=== PATIENT | female | born 1975 | race Caucasian/White ===

== ENCOUNTER 2022-08-13 10:36 | Outpatient (CLI) | payer BC, SELFPAY ==
--- NOTE | 2022-08-13 10:55 | MM_ITS ---
WS: [id number] VIEWS: MLO and CC views both breasts. 3D digital tomosynthesis is also included in this exam. Comparison made with prior exam of 03/19/2016. . Findings: A 1.2 x 0.6 cm ovoid nodule is noted in the medial lower quadrant of the left breast anterior depth. This is a change since the previous study. Regional ultrasound of this area would be indicated for fu rther workup. No significant new finding in the right breast. No architectural distortion or suspicio us calcification in either breast. Scattered fibroglandular densities are noted. MM/[place] [id number] Impression: BI-RADS: 0-Incomplete: Need additional imaging evaluation FOLLOW-UP: See Report This mammogram was also analyzed by the Computer Aided Detection System R2 Imag e Sales Development Coordinator.
== END 2022-08-13 10:37 | disposition home or self-care (01) ==
LOC: RAD 10:39
PROVIDERS: Visit Provider Nurse Practitioner
DX: Z12.31 Encounter for screening mammogram for malignant neoplasm of breast (principal)
CPT/HCPCS: 77063; 77067

== ENCOUNTER 2022-09-14 08:45 | Outpatient (CLI) | payer BC, SELFPAY ==
--- NOTE | 2022-09-14 08:55 | US_ITS ---
WS: [id number] Left breast ultrasound, 09/14/2022 Clinical Data: MASS IN THE LEFT BREAST Comparison: Mammogram, 08/13/2022 Findings: There is a complex lesion 3 cm from the nipple and in the 8:00 position of the left breast. The lesio n measures 0.58 x 0.80 x 1.29 cm and has a well-defined border but numerous septations. The remainder of the medial inner quadrant of the left breast shows no abnormalities. Only normal breast tissue is seen beside the complex lesion. US/US breast LT limited* [id number] Impression: 1. Complex lesion with greatest dimension 1.29 cm located 3 cm from the nipple and in the 8:00 position corresponding to the lesion on the mammogram. 2. Recommend biopsy of left breast lesion. BIRADS: 4-Suspicious Finding-Biopsy Should Be Considered FOLLOW UP: See Report
== END 2022-09-14 08:46 | disposition home or self-care (01) ==
LOC: RAD 08:47
PROVIDERS: PCP Nurse Practitioner; Visit Provider Nurse Practitioner
DX: N63.24 Unspecified lump in the left breast, lower inner quadrant (principal)
CPT/HCPCS: 76642

== ENCOUNTER 2022-10-18 17:24 | Emergency (ER) | payer BC, SELFPAY ==
[2022-10-18] VITALS (15 sets, daily range): BP systolic 107–134; BP diastolic 48–85; PULSE 79–82; RESP 14–16; TEMP 36.8; O2SAT 93–99
--- NOTE | 2022-10-18 17:45 | ED_ITS ---
Documented by User: MANDIE Odell 10/18/22 21:41 HPI - Female Genitourinary General: Chief complaint: Urogenital-Female Stated complaint: urinary pain Time Seen by Provider: 10/18/22 17:44 Source: patient Mode of arrival: ambulatory Limitations: no limitations History of Present Illness: Patient is a 47-year-old female who presents to ED today with a complaint of dysuria, urinary frequency and urgency and hematuria. She is also complaining of lower abdominal pains, back pains, and flank pains. She was reportedly seen at an outlying facility and recommended to come to the ED for further evaluation. Patient states approximately 10 days ago she was diagnosed with streptococcal tonsillitis. She was placed on Augmentin. She states a few days ago she began noticing dysuria frequency and urgency and yesterday began peeing bright red blood . Patient states she does have a history of pyelonephritis. She is reporting fevers as high as 101 yesterday. She states she overall feels poorly and feels fatigued. No history of kidney or ureter stones. MD elicited complaint: dysuria, UTI , back pain and flank pain Pertinent past history: pyelonephritis and other (recent strep) Onset (ago): day(s) Severity: severe Quality of pain: sharp Consistency: constant Vaginal discharge: none Vaginal bleeding: none Urinary symptoms: Dysuria, Flank Pain, Foul Smelling Urine, Frequency and Hematuria Exacerbating factors: urination Relieving factors: none Associated symptoms: Reports abdominal pain and nausea; Deny headache(s) or vaginal discharge Patient : No Review of Systems Const: Reports: fever(s) and fatigue; Denies: chills or body aches Eyes: Denies: change in vision or blurry vision ENMT: Denies: throat pain, odynophagia, ear or mastoid pain, nasal discharge or nasal congestion Card: Denies: chest pain Resp: Denies: dyspnea GI: Reports: abdominal pain and nausea; Denies: vomiting, diarrhea or change in bowel habits : Reports: flank pain, dysuria, urinary frequency, urinary urgency and hematuria; Denies: vaginal odor, vaginal bleeding, vaginal discharge or pelvic pain Musc: Reports: back pain; Denies: neck pain, extremity pain or joint pain Skin/Breast: Denies: rash Neuro: Denies: headache(s), numbness in extremities, weakness in extremities, sensory changes, dizziness or confusion PFSH ED PFSH: Medical History History of pelvic mass Surgical History History of repair of anterior cruciate ligament of right knee Social History Smoking and tobacco status: current every day smoker History of recent travel: No Physical Exam Const: COMMON NORMALS: patient oriented x3, no limitations and alert GENERAL APPEARANCE: cooperative and ill appearing NUTRITIONAL APPEARANCE: overweight ORIENTATION/CONSCIOUSNESS: Yes awake, Yes oriented to person, Yes oriented to place and Yes oriented to time HENMT: COMMON NORMALS: normocephalic and atraumatic HEAD & SCALP: normal to inspection, normocephalic and atraumatic Resp: COMMON NORMALS: normal respiratory effort and clear to auscultation bilaterally AUSCULTATION: clear to auscultation bilaterally Cardio: COMMON NORMALS: regular rate and regular rhythm RATE: regular rate RHYTHM: regular rhythm GI: COMMON NORMALS: Normal to inspection, nondistended, normoactive bowel sounds present, Soft to palpation, No hepatosplenomegaly present and no masses INSPECTION: Yes normal to inspection AUSCULTATION: Yes normoactive bowel sounds PALPATION: Yes Soft to palpation, Yes Tenderness to palpation present (GI) (throughout lower abdomen), Yes Guarding due to palpation present (GI) (lower abdomen), No Rigid due to palpation and Yes No hepatosplenomegaly present : BLADDER/KIDNEY EXAM: Yes CVA tenderness bilateral Back/Pelvis: GENERAL BACK: Yes CVA tenderness LUMBAR SPINE/LOWER BACK: Yes paraspinal muscle tenderness (across lower back) PELVIS: Yes buttocks normal SACROILIAC JOINTS: Yes SI joints normal SACRUM: no tenderness COCCYX: no tenderness Extremity: COMMON NORMALS: normal to inspection, no clubbing, cyanosis or edema, no calf tenderness and no pedal edema GENERAL: Yes normal exam except as noted Neuro: PALMA COMA SCALE: document GCS findings [place] coma scale eye opening: Spontaneous [place] coma scale verbal response: Orientated [place] coma scale motor response: Obey commands [place] coma scale total score: 15 COMMON NORMALS: patient oriented x3 SENSORIUM/ORIENTATION: Yes alert, Yes oriented to person, Yes oriented to place and Yes oriented to time Skin: RASHES: rashes noted (anterior neck/chest) Course Vital Signs: Vital signs: Vital Signs Temperature 98.2 F 10/18/22 17:37 Pulse Rate 79 10/18/22 19:43 Respiratory Rate 16 10/18/22 21:37 Blood Pressure 117/56 10/18/22 21:45 Pulse Oximetry 97 10/18/22 21:45 Oxygen Delivery Me thod 10/18/22 17:37 MDM - Female Medical Decision Making Patient is a nice 47-year-old female here for complaints of dysuria, frequency, urgency, hematuria, lower abdominal and back pains. Vital signs are stable upon arrival. She is not tachycardic or febrile. She has a normal white count. UA does show evidence for UTI with 1+ leukocyte esterase, 10-15 WBCs and 2+ katie teria. Other blood work unremarkable. I have no concern for post-streptococcal glomerulonephritis. Patient was certainly ill appearing more so than what I would expect with a mild UTI. She did have fairly significant suprapubic abdominal pain as well as back/flank pain thus the decision to order CT imaging was made. She does have fairly significant bladder wall thickening which could correlate with acute cystitis. No other acute abnormalities noted. Patient was given fluids, pain meds, nausea meds here in the ED with improvement of her symptoms. She was given a dose of IV Rocephin and will be sent home on Ciprofloxacin for treatment of her UTI (patient cannot do any form of capsules/ gel capsule secondary to alpha gal allergy). She will also be sent home with Pyridium as well as pain and nausea medications for her discomfort. Strict return to ED precautions were discussed. I would like her to see her PCP this week sometime for re-evaluation. Lab Data 10/18/22 18:14 10/18/22 18:14 Radiology Impressions Abdomen/Pelvis CT 10/18/22 19:09 IMPRESSION: 1. The bladder is incompletely filled, which can limit evaluation. Despite this, there is diffuse, mild to moderate wall thickening of the bladder. There is also inflammation around the bladder. In the correct clinical setting, this may suggest cystitis. Recommend correlation with laboratory findings. 2. Scattered diverticula in the sigmoid colon. No evidence for diverticulitis. 3. Incidental/nonacute findings are listed in the report. COMMENTS: Consistent with the [employer]'s Incidental Findings Committee white paper (J Am David Radiol 2018): Any incidental renal lesion less than 1 cm or classified as too small to characterize, or any incidental cystic renal lesion characterized as simple-appearing, is likely benign. No follow-up imaging is recommended for these lesions per consensus recommendations based on imaging criteria. Laboratory Results WBC 7.3 10^3/uL (4.0-10.0) 10/18/22 18:14 RBC 4.51 10^6/uL (4.1-5.3) 10/18/22 18:14 Hgb 14.4 g/dL (11.5-15.3) 10/18/22 18:14 Hct 44.1 % (37.0-47.0) 10/18/22 18:14 MCV 97.8 fl (81-99) 10/18/22 18:14 MCH 31.9 pg (28.0-34.0) 10/18/22 18:14 MCHC 32.7 g/dL (30.0-36.0) 10/18/22 18:14 RDW 11.9 % (12.1-15.1) L 10/18/22 18:14 Plt Count 269 10^3/cmm (130-400) 10/18/22 18:14 MPV 11.1 fL (7.4-10.4) H 10/18/22 18:14 Neut % (Auto) 57.4 % 10/18/22 18:14 Lymph % (Auto) 31.0 % 10/18/22 18:14 Louisa % (Auto) 8.6 % 10/18/22 18:14 Eos % (Auto) 2.3 % 10/18/22 18:14 Baso % (Auto) 0.6 % 10/18/22 18:14 Neut # (Auto) 4.16 10^3/uL (1.8-7.7) 10/18/22 18:14 Lymph # (Auto) 2.3 10^3/uL (0.8-4.8) 10/18/22 18:14 Louisa # (Auto) 0.6 10^3/uL (0.2-0.9) 10/18/22 18:14 Eos # (Auto) 0.2 10^3/uL (0.0-0.8) 10/18/22 18:14 Baso # (Auto) 0.0 10^3/uL (0.0-0.1) 10/18/22 18:14 Nucleated RBC % (auto) 0 % 10/18/22 18:14 Nucleated RBCs # 0.0 /100WBC 10/18/22 18:14 Sodium 139 mmol/L (136-145) 10/18/22 18:14 Potassium 4.7 mmol/L (3.5-5.1) 10/18/22 18:14 Chloride 102 mmol/L (98-107) 10/18/22 18:14 Carbon Dioxide 27 mmol/L (22-29) 10/18/22 18:14 Anion Gap 14.7 (5-19) 10/18/22 18:14 BUN 8 mg/dL (6-20) 10/18/22 18:14 Creatinine 0.7 mg/dL (0.5-0.9) 10/18/22 18:14 GFR Calculation 89.7 mL/min (90-130) L 10/18/22 18:14 Glucose 120 mg/dL (65-115) H 10/18/22 18:14 Calculated Osmolality 288 mOsm/kg (285-295) 10/18/22 18:14 Lactic Acid 1.2 mmol/L (0.5-2.2) 10/18/22 18:40 Calcium 9.5 mg/dL (8.5-10.5) 10/18/22 18:14 Total Bilirubin 0.2 mg/dL (0.15-1.2) 10/18/22 18:14 AST 20 U/L (0-32) 10/18/22 18:14 ALT 20 U/L (0-33) 10/18/22 18:14 Alkaline Phosphatase 107 U/L (35-105) H 10/18/22 18:14 Total Protein 7.0 g/dL (6.6-8.7) 10/18/22 18:14 Albumin 4.1 g/dL (3.5-5.2) 10/18/22 18:14 Globulin 2.9 g/dL (1.3-4.6) 10/18/22 18:14 Urine Color Yellow (Yellow) 10/18/22 18:16 Urine Appearance Hazy (CLEAR) A 10/18/22 18:16 Urine pH 6 (5-7) 10/18/22 18:16 Ur Specific [place] 1.015 (1.005-1.030) 10/18/22 18:16 Urine Protein Neg (Negative) 10/18/22 18:16 Urine Glucose (UA) Norm (Normal) 10/18/22 18:16 Urine Ketones Negative (Negative) 10/18/22 18:16 Urine Blood Neg (Negative) 10/18/22 18:16 Urine Nitrate Negative (Negative) 10/18/22 18:16 Urine Bilirubin Neg (Negative) 10/18/22 18:16 Urine Urobilinogen Neg mg/dL (Negative) 10/18/22 18:16 Ur Leukocyte Esterase 1+ (Negative) H 10/18/22 18:16 Urine RBC None /hpf (0-2) 10/18/22 18:16 Urine WBC 10-15 /hpf (0-5) H 10/18/22 18:16 Ur Squamous Epith Cells Rare /hpf (0-5) 10/18/22 18:16 Amorphous Sediment Not Reportable 10/18/22 18:16 Urine Bacteria 2+ /hpf (NONE) H 10/18/22 18:16 Urine HCG, Qual Negative (Negative) 10/18/22 18:16 Discharge Plan Discharge Patient Disposition: Home Clinical Impression: Acute cystitis Condition: Stable Prescriptions: New hydrocodone-acetaminophen 5-325 mg tablet 1 tab PO Q6H PRN (Reason: pain) Qty: 14 0RF ondansetron 4 mg tablet,disintegrating 4 mg PO Q8H PRN (Reason: nausea and vomiting) Qty: 14 0RF Pyridium 100 mg tablet 100 mg PO Q8H Qty: 6 0RF Cipro 500 mg tablet 500 mg PO Q12H Qty: 14 0RF Discharge Orders: Discharge ED (Routine); Ordered 10/18/22 Ordered By: Halle Knight Referrals: John Paul Spence FNP [Primary Care Provider] - Patient Instructions: Urinary Tract Infection in Women (DC), Opioid Safety, Pain Management Coding Level of Care Code ED Textile Examiner for Chg Fwd Exam Comprehensive Documented by User: Ben Javed MD 10/26/22 04:58 HPI - Female Genitourinary General: Chief complaint: Urogenital-Female Stated complaint: urinary pain Time Seen by Provider: 10/18/22 17:44 PFSH ED PFSH: Medical History History of pelvic mass Surgical History History of repair of anterior cruciate ligament of right knee Social History Smoking and tobacco status: current every day smoker History of recent travel: No Physical Exam Neuro: PALMA COMA SCALE: document GCS findings [place] coma scale total score: 15 Course Vital Signs: Vital signs: Vital Signs Temperature 98.2 F 10/18/22 17:37 Pulse Rate 79 10/18/22 19:43 Respiratory Rate 16 10/18/22 21:37 Blood Pressure 117/56 10/18/22 21:45 Pulse Oximetry 97 10/18/22 21:45 Oxygen Delivery Me thod 10/18/22 17:37 MDM - Female Medical Decision Making Patient is a nice 47-year-old female here for complaints of dysuria, frequency, urgency, hematuria, lower abdominal and back pains. Vital signs are stable upon arrival. She is not tachycardic or febrile. She has a normal white count. UA does show evidence for UTI with 1+ leukocyte esterase, 10-15 WBCs and 2+ bacteria. Other blood work unremarkable. I have no concern for post- streptococcal glomerulonephritis. Patient was certainly ill appearing more so than what I would expect with a mild UTI. She did have fairly significant supra pubic abdominal pain as well as back/flank pain thus the decision to order CT imaging was made. She does have fairly significant bladder wall thickening which could correlate with acute cystitis. No other acute abnormalities noted. Patient was given fluids, pain meds, nausea meds here in the ED with improvement of her symptoms. She was given a dose of IV Rocephin and will be sent home on Ciprofloxacin for treatment of her UTI (patient cannot do any form of capsules/gel capsule secondary to alpha gal allergy). She will also be sent home with Pyridium as well as pain and nausea medications for her discomfort. Strict return to ED precautions were discussed. I would like her to see her PCP this week sometime for re-evaluation. I reviewed this documentation by MANDIE Odell. Ben Javed MD Emergency Medicine Lab Data 10/18/22 18:14 10/18/22 18:14 Radiology Impressions Abdomen/Pelvis CT 10/18/22 19:09
[2022-10-18] MEDS: sodium chloride 0.9% 1,000 ML 999 ML IV (18:09)
[2022-10-18 18:34] LABS: Basophils % 0.6 %; Eosinophils # 0.2 10^3/uL (0.0-0.8); Eosinophils % 2.3 %; Hematocrit 44.1 % (37.0-47.0); Hemoglobin 14.4 g/dL (11.5-15.3); Lymphocytes # 2.3 10^3/uL (0.8-4.8); Mean Corpuscular HGB Conc 32.7 g/dL (30.0-36.0); Mean Corpuscular Hemoglobin 31.9 pg (28.0-34.0); Mean Corpuscular Volume 97.8 fl (81-99); Mean Platelet Volume 11.1 fL (7.4-10.4); Monocytes # 0.6 10^3/uL (0.2-0.9); Monocytes % 8.6 %; Neutrophils # 4.16 10^3/uL (1.8-7.7); Neutrophils % 57.4 %; Nucleated Red Blood Cells % 0 %; Platelet Count 269 10^3/cmm (130-400); Red Blood Count 4.51 10^6/uL (4.1-5.3); Red Cell Distribution Width 11.9 % (12.1-15.1); White Blood Count 7.3 10^3/uL (4.0-10.0)
[2022-10-18 18:51] LABS: Bilirubin Urine Neg (Negative); Blood Urine Neg (Negative); Glucose Urine UA Norm (Normal); Ketones Urine Negative (Negative); Nitrate Urine Negative (Negative); Protein Urine Neg (Negative); Specific Gravity, Urine 1.015 (1.005-1.030); Urine Appearance Hazy (CLEAR); Urine Color Yellow (Yellow); Urobilinogen Urine Neg (Negative); pH Urine 6 (5-7)
[2022-10-18 18:52] LABS: Add Urine Culture? Yes; Add Urine Microscopic? YES; Bacteria Urine 2+ /hpf; Leukocyte Esterase Urine 1+ (Negative); Squamous Epithelial Cell Urine RARE /hpf (0-5)
[2022-10-18 18:53] LABS: Alanine Aminotransferase 20 U/L (0-33); Albumin Level 4.1 g/dL (3.5-5.2); Alkaline Phosphatase 107 U/L (35-105); Anion Gap 14.7 (5-19); Aspartate Amino Transferase 20 U/L (0-32); Blood Urea Nitrogen 8 mg/dL (6-20); Calcium 9.5 mg/dL (8.5-10.5); Carbon Dioxide 27 mmol/L (22-29); Chloride 102 mmol/L (98-107); Creatinine Clr Calc Pharmacy 116.2474; Globulin 2.9 g/dL (1.3-4.6); Glomerular Filtration Rate 89.7 mL/min (90-130); Glucose 120 mg/dL (65-115); Osmolality Calculated 288 mOsm/kg (285-295); Potassium 4.7 mmol/L (3.5-5.1); Sodium 139 mmol/L (136-145); Total Bilirubin 0.2 mg/dL (0.15-1.2)
--- NOTE | 2022-10-18 19:09 | CTR_ITS ---
PROCEDURE INFORMATION: Exam: CT Abdomen And Pelvis With Contrast Exam date and time: 10/18/2022 8:18 PM Age: 47 years old Clinical indication: Fever; Abdominal pain; Localized; Prior surgery; Surgery type: Tubal ligation; Patient HX: C/O lower abd pain with dysuria/hematuria. ; Additional info: Lower abdominal pain/back pain TECHNIQUE: Imaging protocol: Computed tomography of the abdomen and pelvis with contrast. Sagittal and coronal reformatted images were created and reviewed. Radiation optimization: All CT scans at this facility use at least one of these dose optimization techniques: automated exposure control; mA and/or kV adjustment per patient size (includes targeted exams where dose is matched to clinical indication); or iterative reconstruction. Contrast material: OMNI 350; Contrast volume: 100 ml; Contrast route: INTRAVENOUS (IV); COMPARISON: US pelvic with transvaginal 09/13/2017 8:31 AM RADIATION DOSE METRICS: Total DLP (mGy-cm): 970.98 FINDINGS: Lungs: Visualized lungs are clear. Calcified granulomas in both lungs. Pleural spaces: No pleural effusion. Heart: Visualized portions of the heart are unremarkable. Liver: The liver is unremarkable. Gallbladder and bile ducts: The gallbladder is unremarkable. No biliary ductal dilatation. Pancreas: The pancreas is unremarkable. No pancreatic ductal dilatation. Spleen: The spleen is unremarkable. Adrenal glands: The right and left adrenal glands are unremarkable. Kidneys and ureters: The right kidney is unremarkable. Subcentimeter hypodense focus in the left kidney that is too small to characterize, however likely represents a small cyst. The right and left ureters are unremarkable. Stomach and bowel: Scattered diverticula in the sigmoid colon. No evidence for diverticulitis. Appendix: The appendix is visualized and is unremarkable. No findings to suggest acute appendicitis. Intraperitoneal space: No free intraperitoneal air. No ascites. No loculated fluid collections to suggest an abscess. Vasculature: No evidence for aortic aneurysm or aortic dissection. Hepatic veins, portal veins, splenic vein, and SMV are patent. Lymph nodes: No lymphadenopathy. Right hilar calcified lymph node. Urinary bladder: The bladder is incompletely filled, which can limit evaluation. Despite this, there is diffuse, mild to moderate wall thickening of the bladder. There is also inflammation around the bladder. 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 This measures 2.0 cm (series 3, image 74). The right and left ovaries are unremarkable. Bones/joints: Degenerative changes in the spine and hips. Soft tissues: Unremarkable. CT/CT abdomen pelvis w con* [id number] IMPRESSION: 1. The bladder is incompletely filled, which can limit evaluation. Despite this, there is diffuse, mild to moderate wall thickening of the bladder. There is also inflammation around the bladder. In the correct clinical setting, this may suggest cystitis. Recommend correlation with laboratory findings. 2. Scattered diverticula in the sigmoid colon. No evidence for diverticulitis. 3. Incidental/nonacute findings are listed in the report. COMMENTS: Consistent with the [employer]'s Incidental Findings Committee white paper (J Am David Radiol 2018): Any incidental renal lesion less than 1 cm or classified as too small to characterize, or any incidental cystic renal lesion characterized as simple-appearing, is likely benign. No follow-up imaging is recommended for these lesions per consensus recommendations based on imaging criteria.
[2022-10-18 19:22] LABS: Lactic Sepsis W/Reflex 1.2 mmol/L (0.5-2.2)
[2022-10-18] MEDS: morphine 4 mg/mL SDV 1 mL IVP ×2 (19:44→21:37)
[2022-10-18] MEDS: ondansetron 2 mg/ML SDV 2 mL 4 MG IVP ×2 (19:44→21:43)
[2022-10-18] MEDS: iohexol 350 mg/mL 500 mL Btl (per mL) IV (20:24)
[2022-10-18] MEDS: cefTRIAXone 1,000 MG in sodium chloride 0.9% (plus) 50 ML 100 MG IV (21:25)
== END 2022-10-18 21:52 | disposition home or self-care (01) ==
PROVIDERS: Emergency Provider Physician Assistant; PCP Nurse Practitioner
DX: N30.00 Acute cystitis without hematuria (principal); F17.210 Nicotine dependence, cigarettes, uncomplicated
CPT/HCPCS: 36415; 74177; 80053; 81001; 81025; 83605; 85025; 87040; 87077; 87086; 87186; 96365; 96375; 96376; 99285; J0696; J2270; J2405; J7030; Q9967

== ENCOUNTER 2022-11-04 08:02 | Outpatient (CLI) | payer BC, SELFPAY ==
--- NOTE | 2022-11-04 08:19 | US_ITS ---
WS: [id number] ULTRASOUND-GUIDED LEFT BREAST BIOPSY HISTORY: INCONCLUSIVE MAMMOGRAM COMPARISON: 09/14/2022 and 08/13/2022 Procedure, risks and complications are explained to the patient. Medications are reviewed. Consent is obtained. The mass in the LEFT breast is localized with ultrasound. This appears to be a cluster of cysts. Skin is cleansed with ChloraPrep and anesthetized with 1% buffered lidocaine. Small dermatome is made. Un jose sterile conditions mass is biopsied with a 14-gauge Achieve needle. Multiple core biopsies are pe rformed. Material placed in formalin and sent to pathology for review. No complications encountered. Breast tissue marker ([employer] ultrasound enhanced ribbon): Single. Patient left the radiology suite with no complications. Patient is instructed to return to [facility] with any concerns. US/[place] [id number] IMPRESSION: 1. Uncomplicated core needle biopsy LEFT breast cystic mass at 8:00, 3 cm from the nipple. PATHOLOGY: Benign breast changes with apocrine metaplasia. No malignancy. RECOMMENDATION: Return to annual screening mammography.
== END 2022-11-04 08:03 | disposition home or self-care (01) ==
PROVIDERS: PCP Nurse Practitioner; Visit Provider Nurse Practitioner
DX: R92.2 Inconclusive mammogram (principal)
CPT/HCPCS: 19083; 88305

== ENCOUNTER 2024-02-07 10:13 | Outpatient (CLI) | payer BC, SELFPAY ==
--- NOTE | 2024-02-07 10:19 | MM_ITS ---
WS: [id number] BILATERAL SCREENING DIGITAL TOMOSYNTHESIS MAMMOGRAM WITH CAD HISTORY: SCREENING COMPARISON: 08/13/2022, 03/19/2016 Bilateral CC and MLO views with tomosynthesis and synthetic mammography submitted. Computer aided det ection analyzed. Breast composition: There are scattered areas of fibroglandular density. No suspicious masses, microc alcifications or architectural distortion. Biopsy clip in the medial LEFT breast from prior biopsy. T he associated mass is no longer present. Stable 7 x 8 mm slightly ovoid mass LEFT breast at 9:00. No change since 08/13/2022. This may be a lymph node or dilated duct. MM/[place] [id number] IMPRESSION: BI-RADS: 2-Benign FOLLOW UP: 1 Year Follow-up
== END 2024-02-07 10:14 | disposition home or self-care (01) ==
LOC: RAD 10:14
PROVIDERS: PCP Nurse Practitioner; Visit Provider Nurse Practitioner
DX: Z12.31 Encounter for screening mammogram for malignant neoplasm of breast (principal)
CPT/HCPCS: 77063; 77067

== ENCOUNTER 2025-05-03 14:34 | Outpatient (CLI) | payer BC, SELFPAY ==
--- NOTE | 2025-05-03 | MM_ITS ---
WS: [id number] BILATERAL 3D TOMOSYNTHESIS DIGITAL SCREENING MAMMOGRAM WITH CAD CLINICAL INFORMATION: ANNUAL SCREEN HISTORY: Screening mammogram. No current complaints. COMPARISON: 2023 TECHNIQUE: Bilateral CC and MLO views. FINDINGS: Fatty-replaced breasts bilaterally. No suspicious focal mass, asymmetry, calcifications, or architectural distortion. No evidence of malignancy. Biopsy clip LEFT breast MM/MM scr BI tomosynthesis [id number] IMPRESSION: DENSITY: The breasts are almost entirely fatty. BI-RADS: 2 - Benign. FOLLOW UP: 1 Year Follow-up Recommend return to annual screening mammography.
== END 2025-05-03 14:35 | disposition home or self-care (01) ==
PROVIDERS: PCP Nurse Practitioner; Visit Provider Nurse Practitioner
DX: Z12.31 Encounter for screening mammogram for malignant neoplasm of breast (principal); R92.313 Mammographic fatty tissue density, bilateral breasts; Z97.8 Presence of other specified devices
CPT/HCPCS: 77063; 77067

== ENCOUNTER 2025-07-08 12:03 | Outpatient (CLI) | payer BC, SELFPAY | END 2025-07-08 12:04 | disposition home or self-care (01) | LOC: SLEEP 12:04 | PROVIDERS: PCP Nurse Practitioner; Referring Provider Nurse Practitioner; Visit Provider Internal Medicine Pulmonary Disease | DX: R40.0 Somnolence (principal); R53.82 Chronic fatigue, unspecified; E66.812 Obesity, class 2 | CPT/HCPCS: G0399 ==